=== PATIENT | male | born 1945 | race Caucasian/White ===

== ENCOUNTER 2022-11-07 14:11 | Outpatient (CLI) | payer OTHER | END 2022-11-07 14:18 | disposition home or self-care (01) | LOC: RAD 14:11 | DX: M25.531 Pain in right wrist (principal) ==

== ENCOUNTER 2022-11-08 09:32 | Outpatient (CLI) | payer OTHER | END 2022-11-08 09:44 | disposition home or self-care (01) | LOC: RAD 09:32 | DX: M79.631 Pain in right forearm (principal) ==